=== PATIENT | female | born 1990 ===

== ENCOUNTER 2023-05-06 05:15 | Day surgery (SDC) | payer OTHER ==
[2023-04-15 11:40] LABS: HEMATOCRIT 39.1 % (36.0-45.00); MEAN CELL VOLUME 82.2 fL (80.00-100.00); MEAN CORPUSCULAR HEMOGLOBIN 27.4 pg (27.00-32.0); MEAN CORPUSCULAR HGB CONC 33.4 g/dl (32.0-36.0); PLATELET COUNT 265 K/uL (150-450); RED BLOOD COUNT 4.75 M/uL (4.00-6.00); RED CELL DISTRIBUTION WIDTH 15.4 % (11.5-14.5)
[2023-04-15 11:40] LABS: URINE APPEARANCE Clear; URINE BILIRRUBIN Negative (NEGATIVE); URINE BLOOD Negative; URINE COLOR Yellow; URINE GLUCOSE Negative (NEGATIVE); URINE LEUKOCYTE Negative; URINE NITRATE Negative; URINE PROTEIN Negative (NEGATIVE)
[2023-04-15 11:45] LABS: URINE BACTERIA 469.8 uL (0.0-1933); URINE EPITHELIAL CELLS 14.9 uL (0.0-38.8); URINE RBC 17.3 uL (0.0-20.8)
[2023-04-15 12:12] LABS: CALCIUM 8.8 mg/dL (8.5-10.1); CREATININE SERUM 0.58 mg/dL (0.55-1.02); GFR 122.06; POTASSIUM 4.48 mEq/L (3.5-5.1)
[2023-04-15 12:29] LABS: INR 0.94; PARTIAL THROMBOPLASTIN TIME 24.6 SECONDS (22.0-34.0); PROTHROMBIN TIME 9.9 SECONDS (9.0-11.5)
[2023-05-06] MEDS ORDERED: MIRALAX17 GM PO (09:16)
[2023-05-06] MEDS ORDERED: TYLENOL ARTHRI650 MG PO (09:16)
[2023-05-06] MEDS ORDERED: KETO10TA2 PO (09:16)
[2023-05-06] MEDS ORDERED: NEURONTIN300 MG PO (09:16)
[2023-05-06] MEDS ORDERED: TRAMADOL HCL50 MG PO (09:16)
== END 2023-05-06 11:50 | disposition home or self-care (01) ==
LOC: CIR.AMB 05:15
PROVIDERS: ATTEND Surgery
DX: K43.0 Incisional hernia with obstruction, without gangrene (principal); Z20.822 Contact with and (suspected) exposure to COVID-19
CPT/HCPCS: 49594; C1781